=== PATIENT | male | born 1960 | race Caucasian/White ===

== ENCOUNTER 2019-05-03 12:13 | Emergency (ER) | payer BC ==
[~2019-05-03] VITALS: Ht 180.3 cm; Wt 81.6 kg
[2019-05-03 12:35] VITALS: BP 134/65
--- NOTE | 2019-05-03 12:41 | NUR ---
W/C ASSIST TO BED 01
--- NOTE | 2019-05-03 13:00 | NUR ---
PATIENT PRESENTS TO ED WITH LEFT TESTICULAR PAIN AND SWELLING X 1 WEEK. PT STATES PRESSURE-LIKE PAIN OF 2/10 ON L TESTICLE. DENIES ANY TRAUMA TO AREA. PT ALSO COMPLAINS OF MILD DYSURIA. NO DISCHARGE/BLEEDING. PT DENIES ANY FEVER AT THIS TIME; VSS; PATIENT POSITIONED FOR COMFORT; HOB ELEVATED; BEDRAILS UP X2; BED DOWN. ER MD MADE AWARE OF PT STATUS. PMH: HTN, DM, HERNIA, [place] FEVER, S/P GASTRIC SURGERY MEDS: FUROSEMIDE, CARVEDILOL, LOSARTAN, CA ACETATE, VIT D ALLERGIES: NONE
[2019-05-03 13:47] LABS: BASOPHILS % (AUTO) 0.5 % (0.0-2.0); EOSINOPHILS # (AUTO) 0.2 K/uL (0-0.4); EOSINOPHILS % (AUTO) 1.9 % (0.0-4.0); HEMATOCRIT 34.7 % (36-52); HEMOGLOBIN 11.1 g/dL (12.0-18.0); LYMPHOCYTES # (AUTO) 1.5 K/uL (2.0-11.5); LYMPHOCYTES % (AUTO) 13.6 % (20.5-51.1); MEAN CORPUSCULAR HEMOGLOBIN 28 pg (27-31); MEAN CORPUSCULAR HGB CONC 32 g/dL (33-37); MEAN CORPUSCULAR VOLUME 86.5 fL (80-94); MONOCYTES # (AUTO) 0.7 K/uL (0.8-1.0); MONOCYTES % (AUTO) 6.4 % (1.7-9.3); NEUTROPHILS # (AUTO) 8.5 K/uL (1.8-7.7); NEUTROPHILS % (AUTO) 77.6 % (42.2-75.2); PLATELET COUNT (AUTO) 99 K/uL (140-450); RED BLOOD CELL COUNT(AUTO) 4.01 MIL/uL (4.20-6.10); RED CELL DISTRIBUTION WIDTH 16.7 % (11.6-13.7); WHITE BLOOD COUNT (AUTO) 10.9 K/uL (4.8-10.8)
[2019-05-03] MEDS ORDERED: LEVOFLOXACIN 500 MG TAB PO ONE (14:25)
[2019-05-03 14:47] VITALS: BP 134/65
--- NOTE | 2019-05-03 14:48 | NUR ---
Patient discharged with v/s stable. Written and verbal after care instructions given and explained. Patient alert, oriented and verbalized understanding of instructions. Wheel Chair Assisted with by caregiver. All questions addressed prior to discharge. ID band removed. Patient advised to follow up with PMD. Rx of LEVAQUIN given. Patient educated on indication of medication including possible reaction and side effects. Opportunity to ask questions provided and answered.
[2019-05-03 15:01] LABS: ANION GAP 15.3 (8-16); CARBON DIOXIDE 23.1 mmol/L (21-32); POTASSIUM 4.4 mmol/L (3.5-5.1)
[2019-05-03 15:06] LABS: ALBUMIN 1.9 g/dL (3.4-5.0); TOTAL BILIRUBIN 0.8 mg/dL (0.0-1.0)
[2019-05-03 15:07] LABS: CREATININE 4.4 mg/dL (0.7-1.3)
[2019-05-03 15:24] LABS: APPEARANCE,URINE CLOUDY (CLEAR); BILIRUBIN,URINE 1+ (NEGATIVE); BLOOD, URINE 3+ (NEGATIVE); COLOR,URINE YELLOW (YELLOW); LEUKOCYTE ESTERASE ,URINE 2+ (NEGATIVE); NITRITE, URINE POSITIVE (NEGATIVE); UGLUCOSE 1+ (NEGATIVE)
[2019-05-03 15:28] LABS: RBC,URINE 11-20 (MOD) /HPF (0-5); WBC,URINE TOO MANY TO COUNT /HPF (0-5)
== END 2019-05-03 14:45 | disposition home or self-care (01) ==
LOC: MED 12:13
DX: N45.3 Epididymo-orchitis (principal); N39.0 Urinary tract infection, site not specified; E11.22 Type 2 diabetes mellitus with diabetic chronic kidney disease; I12.0 Hypertensive chronic kidney disease with stage 5 chronic kidney disease or end stage renal disease; N18.6 End stage renal disease; Z99.2 Dependence on renal dialysis
CPT/HCPCS: 36415; 76870; 80053; 81001; 85025; 87086; 87186; 99284; Q0092

== ENCOUNTER 2020-09-14 17:33 | Emergency (ER) | payer BC, OTHER ==
[~2020-09-14] VITALS: Ht 167.6 cm; Wt 81.6 kg
[2020-09-14 17:33] VITALS: BP 89/51
--- NOTE | 2020-09-14 17:35 | NUR ---
BIBA TAKEN TO BED #10
--- NOTE | 2020-09-14 17:40 | NUR ---
SEE COMPLETE ASSESSMENT
--- NOTE | 2020-09-14 18:18 | NUR ---
X-Ray at bedside.
[2020-09-14 18:40] LABS: BASOPHILS % (AUTO) 0.8 % (0.0-2.0); EOSINOPHILS # (AUTO) 0.1 K/uL (0-0.4); EOSINOPHILS % (AUTO) 1.9 % (0.0-4.0); HEMATOCRIT 32.9 % (36-52); HEMOGLOBIN 11.1 g/dL (12.0-18.0); LYMPHOCYTES # (AUTO) 1.1 K/uL (2.0-11.5); LYMPHOCYTES % (AUTO) 18.5 % (20.5-51.1); MEAN CORPUSCULAR HEMOGLOBIN 32 pg (27-31); MEAN CORPUSCULAR HGB CONC 34 g/dL (33-37); MEAN CORPUSCULAR VOLUME 94.3 fL (80-94); MONOCYTES # (AUTO) 0.4 K/uL (0.8-1.0); MONOCYTES % (AUTO) 6.9 % (1.7-9.3); NEUTROPHILS # (AUTO) 4.2 K/uL (1.8-7.7); NEUTROPHILS % (AUTO) 71.9 % (42.2-75.2); PLATELET COUNT (AUTO) 62 K/uL (140-450); RED BLOOD CELL COUNT(AUTO) 3.49 MIL/uL (4.20-6.10); RED CELL DISTRIBUTION WIDTH 15.2 % (11.6-13.7); WHITE BLOOD COUNT (AUTO) 5.9 K/uL (4.8-10.8)
--- NOTE | 2020-09-14 18:40 | NUR ---
PT UNABLE TO PROVIDE URINE SPECIMEN D/T CONFUSION. DR. AMADOR NOTIFIED. NEW ORDER FOR STRAIGHT CATHERIZATION RECEIVED.
--- NOTE | 2020-09-14 18:41 | NUR ---
PT TAKEN TO CT VIA [facility]
--- NOTE | 2020-09-14 18:52 | NUR ---
PT RETURNED FROM CT VIA [facility]
--- NOTE | 2020-09-14 19:05 | NUR ---
HANDOFF REPORT GIVEN TO SAFIA ESCUDERO. PT TRANSFERRED IN STABLE CONDITION.
--- NOTE | 2020-09-14 19:06 | NUR ---
RECEIVED REPORT FROM LASHAUN BAIG FOR CONTINUITY OF CARE. PT RESTING IN BED. VSS AT THIS TIME.
--- NOTE | 2020-09-14 19:16 | NUR ---
MESERET SWAB COLLECTED AND SENT TO LAB
[2020-09-14 19:20] LABS: ANION GAP 19.3 (8-16); POTASSIUM 4.3 mmol/L (3.5-5.1); TOTAL BILIRUBIN 0.9 mg/dL (0.0-1.0)
[2020-09-14 19:27] LABS: CREATININE 6.7 mg/dL (0.6-1.3)
--- NOTE | 2020-09-14 19:30 | NUR ---
PT REFUSING STRAIGHT CATHETERIZATION TO OBTAIN URINE SAMPLE. PT SAYS "I DONT HAVE PEE". MADE AWARE.
[2020-09-14] MEDS ORDERED: CARV3.122 PO (19:56)
[2020-09-14] MEDS ORDERED: OSC500 PO (19:56)
[2020-09-14] MEDS ORDERED: GABA300C PO (19:56)
[2020-09-14] MEDS ORDERED: HYDR-5080 PO (19:56)
[2020-09-14] MEDS ORDERED: FURO-570 PO (19:56)
[2020-09-14] MEDS ORDERED: AMLO10TA PO (19:56)
[2020-09-14] MEDS ORDERED: NACL 0.9% 500 ML IV ONE (20:05)
[2020-09-14] MEDS ORDERED: CEFEPIME 2,000 MG in DEXTROSE 5% 100 ML IV ONE ×4 (20:05)
[2020-09-14] MEDS ORDERED: VANCOMYCIN 1,000 MG in DEXTROSE 5% 250 ML IV ONE ×4 (20:05)
[2020-09-14] MEDS ORDERED: NACL 0.9% 1,000 ML IV ONE (20:05)
[2020-09-14] MEDS ORDERED: VANCOMYCIN 1,000 MG VIAL ONE (20:43)
[2020-09-14] MEDS ORDERED: CEFEPIME 2,000 MG VIAL IV ONE (20:43)
--- NOTE | 2020-09-14 21:24 | NUR ---
PT RESTING IN BED WITH HOB ELEVATED AND EYES CLOSED. RESPIRATIONS EVEN AND UNLABORED ON O2 2LPM/NC. VSS STABLE AT THIS TIME. MONITORS IN PLACE. MEDICATION INFUSING WELL. SAFETY MEASURES IN PLACE. WILL CONTINUE TO MONITOR.
--- NOTE | 2020-09-14 22:35 | NUR ---
OBTAINED TELEPHONE CONSENT FOR PT TRANSFER FROM [facility] (). CONSENT WITNESSED BY BOTTOMING MACHINE OPERATOR.
--- NOTE | 2020-09-14 23:28 | NUR ---
SUPERVISOR REMELT AT BEDSIDE. UNABLE TO OBTAIN BLOOD CULTURE
--- NOTE | 2020-09-14 23:35 | NUR ---
CALLED [facility], SPOKE WITH NAYANA RN AND GAVE REPORT. VSS STABLE. CURRNTLY AWAITING FOR [facility] TRANSPORT.
--- NOTE | 2020-09-15 02:19 | NUR ---
PT HAD BOWEL MOVEMENT IN BED. STOOL WAS LIGHT BROWN AND STEPHANE TEXTURED. PERINEAL CARE PERFORMED. BEDDING CHANGED AND PT REPOSITIONED FOR COMFORT.
--- NOTE | 2020-09-15 02:54 | NUR ---
[facility] AT BEDSIDE.
--- NOTE | 2020-09-15 02:57 | NUR ---
Patient to be transferred to [facility]. Is being transferred due to INSURANCE COVERAGE. Receiving facility has accepting physician and available space. ER physician has signed transfer form. Patient or responsible republican has agreed to transfer and signed form. Patient belongings inventoried and will be sent with patient. Copy of nursing notes, lab reports, EKG, Physicians Orders and X-rays to be sent with patient. Report called to NAYANA RN EARLIER at receiving facility. [facility] WILL BE TRANSPORTING PATIENT. VSS STABLE UPON LEAVING.
[2020-09-15 02:59] VITALS: BP 140/77
--- NOTE | 2020-09-15 03:05 | NUR ---
PT TAKEN BY [facility]
--- NOTE | 2020-09-15 14:01 | NUR ---
LATE ENTRY -- MAXIPIME INFUSION COMPLETED AT 2156 AND NS BOLUS INFUISON COMPLETED AT 2155
== END 2020-09-15 03:05 | disposition short-term general hospital (02) ==
LOC: MED 17:33
DX: R41.82 Altered mental status, unspecified (principal); Z20.822 Contact with and (suspected) exposure to COVID-19; E11.65 Type 2 diabetes mellitus with hyperglycemia; E11.22 Type 2 diabetes mellitus with diabetic chronic kidney disease; I12.0 Hypertensive chronic kidney disease with stage 5 chronic kidney disease or end stage renal disease; N18.6 End stage renal disease; J44.9 Chronic obstructive pulmonary disease, unspecified; Z99.2 Dependence on renal dialysis; Z89.612 Acquired absence of left leg above knee; Z79.899 Other long term (current) drug therapy
CPT/HCPCS: 36415; 36600; 70450; 71045; 80053; 82009; 82140; 82550; 82803; 84484; 85025; 87426; 93005; 96365; 96368; 99285; G0482; J0692; J3370; J7030